=== PATIENT | female | born 1955 | race Caucasian/White ===

== ENCOUNTER 2020-10-29 08:04 | Observation (INO) ==
[2020-10-29] MEDS ORDERED: NS 0.9% 1000 ml BAG 1,000 ML IV ONE (08:13)
[2020-10-29 08:46] LABS: ABS Eosinophils 0.3 10^3/ul (0-0.6); ABS Lymphocytes 2.1 10^3/ul (1.0-4.8); ABS Monocytes 0.5 10^3/ul (0-0.8); ABS Neutrophils 7.5 10^3/ul (1.5-7.7); Eosinophil % 2.6 %; Hematocrit 40 % (35-47); Hemoglobin 13.5 g/dL (12.0-16.0); Lymphocyte % 19.9 %; Mean Corpuscular HGB Conc 34 g/dL (31-36); Mean Corpuscular Hemoglobin 30 pg (27-31); Mean Corpuscular Volume 89 fL (80-97); Mean Platelet Volume 8.3 fL (7.4-10.4); Platelet Count 289 10^3/uL (150-450); Red Blood Count 4.53 10^6 /uL (3.70-4.87); Red Cell Distribution Width 14 % (10-15); White Blood Count 10.4 10^3/uL (3.5-10.8)
[2020-10-29 09:00] LABS: Albumin 3.8 g/dL (3.2-5.2); Albumin/Globulin Ratio 1.4 (1-3); Calcium 9.4 mg/dL (8.6-10.3); EGFR African American 89.1 (>60); EGFR Non-African American 73.7 (>60); Globulin 2.7 g/dL (2-4); Potassium 4.2 mmol/L (3.5-5.0); Total Bilirubin 0.4 mg/dL (0.2-1.0); Total Protein 6.5 g/dL (6.4-8.9)
[2020-10-29] MEDS ORDERED: Iodixanol (CONTRAST) 320 MG/ML 100 ML SDV IV ONE (10:10)
[2020-10-29] MEDS ORDERED: metroNIDAZOLE IV 500 MG/100ML 500 MG/100 ML BAG IVPB ONE (12:24)
[2020-10-29] MEDS ORDERED: cefTRIAXone 1 gm/50 mL NS BAG 1 GM/50 ML BAG IV ONE (12:25)
[2020-10-29 12:54] LABS: C Reactive Protein 10.97 mg/L (<8.01)
[2020-10-29] MEDS ORDERED: Albuterol HFA INHALER 8 gm MDI INH PRN (13:28)
[2020-10-29] MEDS ORDERED: Dextrose 50% Syringe 50 ml 25 GM/50 ML SYRINGE IV PUSH PRN (13:39)
[2020-10-29] MEDS: Enoxaparin 40 MG/0.4 ML SYR SUBCUT SCH (15:22)
[2020-10-29] MEDS: metroNIDAZOLE IV 500 MG/100ML 500 MG/100 ML BAG IVPB SCH (22:46)
[2020-10-30 05:04] LABS: ABS Eosinophils 0.3 10^3/ul (0-0.6); ABS Lymphocytes 2.1 10^3/ul (1.0-4.8); ABS Monocytes 0.6 10^3/ul (0-0.8); ABS Neutrophils 5.5 10^3/ul (1.5-7.7); Eosinophil % 3.5 %; Hematocrit 41 % (35-47); Hemoglobin 13.6 g/dL (12.0-16.0); Lymphocyte % 24.2 %; Mean Corpuscular HGB Conc 33 g/dL (31-36); Mean Corpuscular Hemoglobin 30 pg (27-31); Mean Corpuscular Volume 91 fL (80-97); Mean Platelet Volume 7.9 fL (7.4-10.4); Platelet Count 275 10^3/uL (150-450); Red Blood Count 4.52 10^6 /uL (3.70-4.87); Red Cell Distribution Width 13 % (10-15); White Blood Count 8.6 10^3/uL (3.5-10.8)
[2020-10-30 05:21] LABS: C Reactive Protein 10.81 mg/L (<8.01); Calcium 8.9 mg/dL (8.6-10.3); EGFR African American 93.3 (>60); EGFR Non-African American 77.1 (>60)
[2020-10-30] MEDS: metroNIDAZOLE IV 500 MG/100ML 500 MG/100 ML BAG IVPB SCH ×3 (06:16→23:32)
[2020-10-30] MEDS: Aspirin EC 81 mg TAB.EC (enteric coated) PO SCH (07:55)
[2020-10-30] MEDS: CMC:Desvenlafaxine 50 mg TAB (NF) PO SCH (07:56)
[2020-10-30] MEDS: Enoxaparin 40 MG/0.4 ML SYR SUBCUT SCH (12:18)
[2020-10-30] MEDS ORDERED: cefTRIAXone 1 gm/50 mL NS BAG 1 GM/50 ML BAG IVPB SCH (13:00)
[2020-10-30 15:12] LABS: Urine Appearance Cloudy; Urine Bilirubin Negative (Negative); Urine Blood Negative (Negative); Urine Color Yellow; Urine Glucose Negative (Negative); Urine Ketones Negative (Negative); Urine Nitrite Negative (Negative); Urine Protein Negative (Negative); Urine Specific Gravity 1.014 (1.002-1.030); Urine Urobilinogen Negative (Negative)
[2020-10-31] MEDS: metroNIDAZOLE IV 500 MG/100ML 500 MG/100 ML BAG IVPB SCH (06:18)
[2020-10-31] MEDS: CMC:Desvenlafaxine 50 mg TAB (NF) PO SCH (08:25)
[2020-10-31] MEDS: Aspirin EC 81 mg TAB.EC (enteric coated) PO SCH (08:25)
[2020-10-31 12:01] VITALS: BP 135/83
== END 2020-10-31 14:25 | disposition home or self-care (01) ==
LOC: ED 08:04 → MED 08:04
PROVIDERS: ADMIT Internal Medicine; ATTEND Internal Medicine